=== PATIENT | female | born 1985 | race Two or more races ===

== ENCOUNTER 2025-01-14 07:42 | Outpatient (CLI) | payer OTHER ==
[2025-01-14 08:58] LABS: BASO % 0.8 % (0.1-1.2); EOS # 0.15 (0.04-0.54); EOS % 2.8 % (0.7-7.0); LYMPH # 1.79 (1.18-3.74); LYMPH % 33.9 % (19.3-53.1); MEAN PLATELET VOLUME 9.50 fl (9.4-12.4); MONO # 0.44 (0.24-0.82); MONO % 8.3 % (4.7-12.5); NEUT # 2.85 (1.56-6.13); NEUT % 54.0 % (34.0-71.1); RED CELL DISTRIBUTION WIDTH 17.1 % (11.6-14.4)
[2025-01-14 10:01] LABS: % SATURACION 9.5 % (15-50); ALT/SGPT 25.0 U/L (12-78); AST/SGOT 13.0 U/L (15-37); BILIRUBIN TOTAL 0.33 mg/dL (0.3-1.2); BUN CREA RATIO 13.0 (7.0-25.0); CREATININE SERUM 0.56 mg/dL (0.55-1.02); FE 34.0 ug/dl (50-170); GFR 121.15; GLOBULINA 3.0 G/DL (2.4-3.5); GLUCOSE FASTING 85.0 mg/dL (65-100); LDH 169.0 U/L (84-246); OSMOLALITY SERUM 282.0 MOSM/KG (275-295); T4 FREE 1.07 NG/ML (0.76-1.46); TSH 1.17 uIU/mL (0.358-3.74)
[2025-01-14 13:54] LABS: FOLIC ACID 16.45 ng/ml (4.78-20)
[2025-01-15 09:08] LABS: ANTI THYROID PEROXIDASE < 9 IU/mL (0-34)
[2025-01-17 23:06] LABS: g6pd quant 284 (127-427)
== END 2025-01-14 07:47 | disposition home or self-care (01) ==
LOC: LAB 07:42
PROVIDERS: ATTEND Internal Medicine Hematology & Oncology
DX: D50.8 Other iron deficiency anemias (principal); D51.3 Other dietary vitamin B12 deficiency anemia; N92.1 Excessive and frequent menstruation with irregular cycle; I10 Essential (primary) hypertension; R74.02 Elevation of levels of lactic acid dehydrogenase [LDH]; K76.89 Other specified diseases of liver; D63.8 Anemia in other chronic diseases classified elsewhere; R79.9 Abnormal finding of blood chemistry, unspecified; D52.9 Folate deficiency anemia, unspecified; D51.0 Vitamin B12 deficiency anemia due to intrinsic factor deficiency; E06.3 Autoimmune thyroiditis; E03.8 Other specified hypothyroidism